=== PATIENT | male | born 1995 | race Caucasian/White ===

== ENCOUNTER 2024-05-27 15:49 | Outpatient (CLI) | payer BC, SELFPAY ==
--- NOTE | 2024-05-27 16:07 | XR_ITS ---
FINAL REPORT CLINICAL HISTORY: HUMERUS HEAD FRACTURE FINDINGS: 3 views of the elbow right were obtained. There are postoperative changes of the distal humerus with a sideplate and multiple screws in place. The joint spaces are intact. There is not soft tissue abnormality. IMPRESSION: Postoperative changes of the distal humerus. Reviewed, Interpreted and Dictated by Leonard Hoffmann III, MD Transcribed by Roopa Oliva Authenticated and [facility]
== END 2024-05-27 23:59 | disposition home or self-care (01) ==
LOC: RAD 16:02
PROVIDERS: PCP Nurse Practitioner; Visit Provider Nurse Practitioner
DX: S42.291A Other displaced fracture of upper end of right humerus, initial encounter for closed fracture (principal)
CPT/HCPCS: 73080